=== PATIENT | male | born 1985 | race Caucasian/White ===

== ENCOUNTER 2016-07-13 08:52 | Emergency (ER) | payer OTHER ==
[2016-07-13] MEDS ORDERED: RINGERS SOLUTION,LACTATED 1,000 ML IV ONE (10:08)
[2016-07-13] MEDS ORDERED: ONDANSETRON HCL/PF 2 MG/ML VIAL IV ONE (10:08)
[2016-07-13] MEDS ORDERED: diphenhydrAMINE HCL 50 MG/ML VIAL IV ONE (10:19)
[2016-07-13] MEDS ORDERED: KETOROLAC TROMETHAMINE 30 MG/ML VIAL IV ONE (10:19)
--- NOTE | 2016-07-13 10:19 | ERNOTE ---
Medical Problem HPI - Narrative Date of Service: 07/13/16 - General Chief Complaint: Nausea/Vomiting Time Seen by Provider: 07/13/16 10:01 Source: patient Exam Limitations: no limitations - Immun/Allergies/Home Medications Allergies/Adverse Reactions: Allergies atropine Allergy (Verified 07/13/16 09:31) candicidin Allergy (Verified 07/13/16 09:31) cefaclor [From Ceclor] Allergy (Verified 07/13/16 09:31) - History of Present History Narrative: Pt. comes in with c/o headache nausea and vomiting after going out drinking with friends last night. Pt. states taht he drank 4 beers and 6 mixed drinks, which he states is much more than he usually drinks when he goes out. Pt. state that symptoms started when he woke up at 0600 to use the restroom. Pt. denies any prehospital treatment, alleviating factors, or aggravating factors. Review of Systems - Review of Systems Constitutional: Present: no symptoms reported. Absent: recent illness, fever, chills, weakness, fatigue, malaise EYE: Present: no symptoms reported ENT: Present: no symptoms reported Respiratory: Present: no symptoms reported. Absent: shortness of breath, cough , wheezing Cardiology: Present: no symptoms reported. Absent: chest pain, palpitations, edema Gastrointestinal/Abdominal: Present: nausea, vomiting. Absent: diarrhea, abdominal pain Genitourinary: Present: no symptoms reported Musculoskeletal: Present: no symptoms reported. Absent: back pain, joint pain Skin: Present: no symptoms reported Neurological: Present: headache. Absent: dizziness/light-headedness, numbness, tingling All Other Systems: All systems neg except as marked - Patient's Past Medical History Patient History - Medical: No pertinent hx Physical Exam - Physical Exam General Appearance: Present: wd/wn, alert, no apparent distress Eye Exam: Normal inspection: bilateral, PERRL: bilateral, EOMI: bilateral Ears, Nose, Throat: Present: normal ENT inspection, hearing grossly normal, normal pharynx Neck: Present: normal inspection, nontender. Absent: lymphadenopathy (R), lymphadenopathy (L) Respiratory: Present: no respiratory distress, normal breath sounds, no accessory muscle use, chest nontender, lungs clear Cardiovascular/Chest: Present: regular rate, rhythm, no murmur, normal peripheral pulses Gastrointestinal/Abdominal: Present: normal bowel sounds, nontender, nondistended, soft, no organomegaly Back Exam: Present: normal inspection, normal range of motion, no CVA tenderness , no vertebral tenderness Extremity Exam: Present: normal inspection, non-tender, no edema, normal range of motion Neurological Exam: Present: alert, oriented, normal mood/affect, no motor/ sensory deficits, 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 Vital Signs: Vital Signs 07/13/16 09:27 Temperature 36.8 C Pulse Rate 104 H Respiratory 14 Rate Blood Pressure 144/92 O2 Sat by Pulse 100 Oximetry - Progress/Reassessment Chief Complaint: Nausea/Vomiting Progress:: Improved Departure - Departure Clinical Impression: Hangover effect Qualifiers: Complication of substance-induced condition: uncomplicated Qualified Code(s): F10.120 - Alcohol abuse with intoxication, uncomplicated Disposition: Home self-care Condition: Good Instructions: Alcohol Use Disorder, Alcohol Intoxication, [id number]-[id number] Additional Instructions: Please follow up with primary provider and keep taking fluids.
[2016-07-13] MEDS ORDERED: KETOROLAC TROMETHAMINE 30 MG/ML VIAL ONE (10:23)
[2016-07-13] MEDS ORDERED: diphenhydrAMINE HCL 50 MG/ML VIAL ONE (10:23)
[2016-07-13] MEDS ORDERED: ONDANSETRON HCL/PF 2 MG/ML VIAL ONE (10:23)
[2016-07-13 11:43] VITALS: BP 108/64
== END 2016-07-13 11:58 | disposition home or self-care (01) ==
LOC: ER 08:52
DX: F10.120 Alcohol abuse with intoxication, uncomplicated (principal)

== ENCOUNTER 2017-04-04 21:58 | Emergency (ER) | payer OTHER ==
[2017-04-04] MEDS ORDERED: AMOXICILLIN TRIHYDRATE 250 MG CAPSULE PO ONE (22:30)
--- NOTE | 2017-04-04 22:34 | ERNOTE ---
ENT HPI Date of Service: 04/04/17 Presenting Symptoms: dental pain Time Seen by Provider: 04/04/17 22:34 Source: patient Exam Limitations: no limitations - Immun/Allergies/Home Medications Immunizations: IMMUNIZATION HX Immunizations Up to Date No: unsure History of Influenza Vaccine No Hx Pneumococcal Vaccination No Allergies/Adverse Reactions: Allergies Allergy/AdvReac Type Severity Reaction Status Date / Time atropine Allergy Verified 07/13/16 09:31 candicidin Allergy Verified 07/13/16 09:31 cefaclor [From Ceclor] Allergy Verified 07/13/16 09:31 Home Medications: HOME MEDICATIONS Amoxicillin 500 mg PO TID #30 capsule 04/04/17 [Last Taken Unknown] - History of Present Illness Narrative: 3 month history of tooth number 17 and 18 aching and is excerbated by chewing. He has been taking Ibuprofen and Tylenol for the pain. Denies any fevers or chills. Date (Duration): 04/04/17 Time (Timing): 22:24 Severity: Present: moderate ENT Location: Present: dental Prearrival Treatment: Present: other - none Modifying Factors - Improves: Reports: other - Tylenol and Ibuprofen Modifying Factors - Worsens: Reports: other - chewing Associated Symptoms - ENT: Denies: fever Prior Treament: Reports: similar symptoms before Review of Systems - Review of Systems Constitutional: Present: no symptoms reported EYE: Present: no symptoms reported ENT: Present: See HPI Respiratory: Present: no symptoms reported Cardiology: Present: no symptoms reported Gastrointestinal/Abdominal: Present: no symptoms reported Genitourinary: Present: no symptoms reported Musculoskeletal: Present: no symptoms reported Skin: Present: no symptoms reported Neurological: Present: no symptoms reported Endocrine: Present: no symptoms reported Hematologic/Lymphatic: Present: no symptoms reported Psych: Present: no symptoms reported - Patient's Past Medical History Patient History - Medical: No pertinent hx Patient History - Cardiac/Respiratory: No pertinent hx Patient History - Cancer: No Hx of Cancer Patient History - Surgical Procedures: No surgical history Patient History - Other: None - Social History Living Situations: spouse Abuse History: No History of abuse Psych History: No pertinent hx Smoking Status: Never smoker Have you smoked in the past 12 months: No Do you dip or chew tobacco: No Alcohol Use: occasionally Drug Use: none - Immunizations Immunizations Up to Date: No - unsure Hx Pneumococcal Vaccination: No History of Influenza Vaccine: No Physical Exam - Physical Exam General Appearance: Present: no apparent distress Head Exam: Present: normal inspection Eye Exam: Normal inspection: bilateral Ears, Nose, Throat: Present: other - obvious caries; no gum tenderness Neck: Present: normal inspection Respiratory: Present: no respiratory distress Cardiovascular/Chest: Present: regular rate, rhythm Gastrointestinal/Abdominal: Present: nondistended Back Exam: Present: normal inspection Extremity Exam: Present: normal inspection Neurological Exam: Present: alert, oriented Skin Exam: Present: normal color ED Progress - Vital Signs Patient's Vital Signs:: I have reviewed the patient's vital signs. Vital Signs: Vital Signs 04/04/17 22:02 Temperature 37.3 C Pulse Rate 64 Respiratory 14 Rate Blood Pressure 145/80 O2 Sat by Pulse 99 Oximetry - Progress/Reassessment Chief Complaint: Dental Problem Progress:: Unchanged Departure Clinical Impression: Pain, dental - Departure Disposition: Home self-care Condition: Good Instructions: Dental Abscess, [id number] Print Language: Afghan Additional Instructions: You should see a dentist as soon as possible. Prescriptions: Amoxicillin 500 mg PO TID #30 capsule
[2017-04-04] MEDS ORDERED: AMOXICILLIN TRIHYDRATE 250 MG CAPSULE ONE (22:41)
[2017-04-05 04:28] VITALS: BP 128/79
== END 2017-04-04 22:44 | disposition home or self-care (01) ==
LOC: ER 21:58
DX: K08.89 Other specified disorders of teeth and supporting structures (principal)